=== PATIENT | male | born 1980 | race Caucasian/White ===

== ENCOUNTER → 2020-07-15 12:10 | Outpatient (ROUT) | payer OTHER, SELFPAY ==
[2020-07-15 13:23] LABS: COVID19 -Nasal RAPID Negative (Negative)
== END ==
PROVIDERS: Visit Provider Family Medicine
DX: Z20.822 Contact with and (suspected) exposure to COVID-19 (principal)
CPT/HCPCS: 87635

== ENCOUNTER → 2020-07-20 15:04 | Outpatient (ROUT) | payer OTHER, SELFPAY ==
[2020-07-20 15:38] LABS: COVID19 -Nasal RAPID Negative (Negative)
== END ==
PROVIDERS: Visit Provider Family Medicine
DX: Z20.822 Contact with and (suspected) exposure to COVID-19 (principal); Z03.818 Encounter for observation for suspected exposure to other biological agents ruled out
CPT/HCPCS: 87635

== ENCOUNTER → 2020-10-01 13:53 | Outpatient (ROUT) | payer OTHER, SELFPAY ==
[2020-10-01 14:46] LABS: COVID19 -Nasal RAPID POSITIVE (Negative)
== END ==
PROVIDERS: Visit Provider Family Medicine
DX: U07.1 COVID-19 (principal)
CPT/HCPCS: 87635

== ENCOUNTER 2023-08-06 12:06 | Emergency (ER) | payer OTHER, SELFPAY ==
[2023-08-06 12:14] VITALS: BP 191/119; PULSE 101; RESP 16; TEMP 36.4; O2SAT 97; BMI 34.8
[2023-08-06] MEDS: IBUPROFEN 400 MG TABLET 800 MG PO (12:34)
[2023-08-06] MEDS: OXYCODONE/ACETAMINOPHEN 5/325 TABLET 1 TAB PO (13:11)
--- NOTE | 2023-08-06 13:17 | ED_ITS ---
<Statement entered by Flo Moffett MD - 08/06/23 18:13> I was available for consultation during this patient's time in the ER but not consulted. My review of this chart is my first interaction with this patient's presentation. I confirmed however with the provider after my review of chart that this burn did not cross joints and did not look concerning enough to merit referral to burn center. HPI - Burn/Smoke Inhalation General Chief complaint: Burn/Smoke Inhalation Stated complaint: burn rt hand Time Seen by Provider: 08/06/23 12:29 Source: patient Mode of arrival: Ambulatory History of Present Illness HPI Narrative: 43-year-old male with no reported past medical history presents to the ED status post a burn injury sustained at work just prior to arrival. Patient states that he reached out with his right hand to support himself against a door frame when trying to descend a stair, burned his hand against the hot door frame. The doorframe was hot from some welding that was occurring in the room next door. Patient was wearing a rubber glove on when this happened. Patient was able to remove the glove and the clinic at work put on some burn cream on his hand and sent him to the ED for further evaluation. Patient's tetanus is up-to-date. Patient is able to move all fingers and hand, endorses severe pain at the site of the burn. Related Data Allergies Allergy/AdvReac Type Severity Reaction Status Date / Time No Known Drug Allergies Allergy Verified 08/06/23 12:18 Review of Systems Constitutional Constitutional: Denies chills, Denies fatigue, Denies fever(s), Denies frequent falls, Denies lethargy and Denies weakness Eyes Eyes: Denies change in vision, Denies eye discharge, Denies irritation and Denies loss of vision ENT Ears, Nose, Mouth, and Throat: Denies change in voice, Denies dizziness, Denies neck pain, Denies sore throat and Denies throat swelling Cardiovascular Cardiovascular: Denies chest pain, Denies irregular heart rhythm, Denies lightheadedness, Denies palpitations, Denies dyspnea, Denies dyspnea on exertion and Denies orthopnea Respiratory Respiratory: Denies cough, Denies dyspnea, Denies dyspnea on exertion and Denies wheezing Gastrointestinal Gastrointestinal: Denies abdominal pain, Denies change in bowel habits, Denies diarrhea, Denies nausea and Denies vomiting Musculoskeletal Musculoskeletal: Denies neck pain and Denies numbness Integumentary/Breasts Skin/Breast: Denies pruritus, Denies erythema, Denies rash and Reports wounds Comments: Right hand burn Neurologic Neurologic: Denies behavioral changes, Denies confusion, Denies dizziness, Denies frequent falls, Denies loss of vision, Denies numbness and Denies weakness Psychiatric Psychiatric: Denies anxiety, Denies behavioral changes, Denies confusion, Denies depression, Denies homicidal ideation and Denies suicidal ideation Endocrine Endocrine: Denies fatigue, Denies flushing and Denies palpitations Hematologic/Lymphatic Hematologic/Lymphatic: Denies easy bruising Allergic/Immunologic Allergic/Immunologic: Denies urticaria, Denies throat swelling and Denies wheezing Patient History Social History Smoking Status: Former smoker Smoking Status: Former smoker Substance Use Type: does not use Exam Narrative Exam Narrative: Const General:?cooperative, healthy appearing and comfortable [facility] Head:?normal to inspection Ears:?hearing grossly normal bilaterally Nose:?external nose normal Face and sinus:?normal facial exam and sinuses nontender Mouth:?oral mucosae normal Throat:?posterior oropharynx normal Eyes General:?appearance normal, both eyes and all related structures Neck Neck:?normal visual inspection and no lymphadenopathy noted Resp Effort & Inspection:?normal respiratory effort Auscultation:?clear to auscultation bilaterally Cardio Rate:?regular rate Rhythm:?regular rhythm Integumentary There is a superficial second-degree burn to the hypothenar eminence of the right hand. Blister is intact. Wound looks clean without any debris. Patient is neurovascularly intact. Compartments are soft. Neuro General:?patient alert, patient awake and patient oriented x3 Initial Vital Signs Initial Vital Signs: Vital Signs Temperature 97.5 F L 08/06/23 12:14 Pulse Rate 101 H 08/06/23 12:14 Respiratory Rate 16 08/06/23 12:14 Blood Pressure 191/119 H 08/06/23 12:14 Pulse Oximetry 97 08/06/23 12:14 Oxygen Delivery Method Room Air 08/06/23 12:14 Course Orders Ordered: Discontinued Medications Ibuprofen (Ibuprofen 400 Mg Tablet) 800 mg PO NOW ONE Stop: 08/06/23 12:30 Last Admin: 08/06/23 12:34 Dose: 800 mg Documented By: MANNY Oxycodone/Acetaminophen (Oxycodone/Acetaminophen 5/325 Tablet) 1 tab PO NOW ONE Stop: 08/06/23 12:55 Last Admin: 08/06/23 13:11 Dose: 1 tab Documented By: MANNY Vital Signs Vital signs: Vital Signs - 8 hr 08/06/23 12:14 08/06/23 13:23 Temperature 97.5 F L 98.3 F Pulse Rate 101 H 68 Respiratory Rate 16 20 Blood Pressure 191/119 H 169/98 H Pulse Oximetry 97 96 Oxygen Delivery Method Room Air Room Air MDM - Burn/Smoke Inhalation MDM Narrative Medical decision making narrative: 43-year-old male with no reported past medical history presents to the ED status post a burn injury sustained at work just prior to arrival. Physical exam is consistent with a superficial second-degree burn. There is a burn blister that is developing at the site of the injury alongside the hypothenar eminence of the right hand. The wound appears clean and there is no debris. Patient given ibuprofen and Percocet for pain control. Dressed the wound with Xeroform and Op site bandage. Recommend continued dressing of the wound with Xeroform an op- site to maintain a moist healing environment. Discussed signs of infection and advice return to the ED if any signs of infection noted. Patient verbalized understanding. Medical records reviewed: Yes Discharge Plan Departure Patient Disposition: Home Clinical Impression: Burn Instructions: DI for Ferrer Activity Restrictions/Additional Instructions: You were evaluated in the ED today for a burn on your right hand. You have a superficial second-degree burn with a burn blister. Please keep the blister intact and dress the wound with Xeroform and an occlusive dressing such as op- site. The goal is to keep the wound moist as it heals. Please also watch for signs of infection including worsening redness, pain, swelling, warmth, discharge. You may take ibuprofen for pain. Return to the ED if you note any signs of infection. Referrals: Miscellaneous,Doctor, [Primary Care Provider] - Stand Alone Forms: Patient Portal/API
[2023-08-06 13:23] VITALS: BP 169/98; PULSE 68; RESP 20; TEMP 36.8; O2SAT 96
== END 2023-08-06 13:37 | disposition home or self-care (01) ==
PROVIDERS: Emergency Provider Student in an Organized Health Care Education/Training Program
DX: T23.251A Burn of second degree of right palm, initial encounter (principal); X19.XXXA Contact with other heat and hot substances, initial encounter; Y99.0 Civilian activity done for income or pay
CPT/HCPCS: 99283; 99284

== ENCOUNTER → 2024-06-17 10:56 | Outpatient (CLI) | payer OTHER, SELFPAY ==
--- NOTE | 2024-06-17 11:00 | DI.US.S_ITS ---
PROCEDURE: US EXTREMITY NONVASC LOWER LT INDICATIONS: LEFT POSTERIOR KNEE SWELLING/PAIN ?SOTO'S CYST TECHNIQUE: Real-time scanning was performed of the left knee , with image documentation. COMPARISON: None. FINDINGS/IMPRESSION: No sonographic abnormality about the left knee. No Soto's cyst. Dictated by: Gregory Dunn M.D. on 06/17/2024 at 11:35 Approved by: Gregory Dunn M.D. on 06/17/2024 at 11:36
== END ==
PROVIDERS: Referring Provider Family Medicine; Visit Provider Family Medicine
DX: M25.562 Pain in left knee (principal); M71.22 Synovial cyst of popliteal space [Baker], left knee
CPT/HCPCS: 76882

== ENCOUNTER → 2024-06-18 07:10 | Outpatient (CLI) | payer OTHER, SELFPAY ==
--- NOTE | 2024-06-18 07:13 | DI.MRI.S_ITS ---
PROCEDURE: MR KNEE LT WO CON INDICATIONS: PAIN IN KNEE/POSTERIOR KNEE SWELLING TECHNIQUE: Noncontrast sagittal PD fast spin echo and T2 fast spin echo with fat saturation, sagittal 3-D FLASH with fat saturation; coronal T1 spin echo and PD fast spin echo with fat saturation, and axial PD fast spin echo with fat saturation through the knee. COMPARISON: None. FINDINGS: Image quality: Excellent. Menisci: Medial and lateral meniscal extrusion. There is a complex tear involving the body and posterior horn of the medial meniscus. In addition, there is a horizontal tear involving the anterior horn of the medial meniscus. There is a horizontal tear of the body of the lateral meniscus. The meniscal root ligaments appear intact. Cruciate ligaments: The anterior and posterior cruciate ligaments appear intact. Medial structures: The medial collateral ligament appears intact. The posterior oblique ligament, semimembranosus tendon insertions, oblique popliteal ligament, and meniscocapsular junction appear intact. Visualized portions of the pes anserinus tendons appear normal. No abnormal bursal fluid. There is a 2.7 x 1.5 x 3.3 cm complex cyst in the superior medial aspect of the knee joint. Lateral structures: The lateral collateral ligament, long and short heads of the biceps femoris tendon appear intact. The popliteus tendon appears normal; the popliteofibular ligament appears intact. The posterosuperior and anteroinferior popliteomeniscal fascicles appear intact. The arcuate and fabellofibular ligaments appear intact, on either side of the lateral inferior geniculate artery. Iliotibial band appears normal. Anterior structures: The quadriceps and patellar tendons appear intact. Patellar alignment is normal. No femoral trochlear dysplasia or ventral trochlear prominence. No edema in the infrapatellar fat pad. Nonspecific prepatellar soft tissue swelling. Bones and cartilage: No bone marrow contusions or fractures. Mild cartilage fibrillation with relatively preserved thickness. Joint space: There is small knee joint fluid. There is a small Soto's cyst. Normal appearing synovial plicae are incidentally noted. IMPRESSION: 1. Complex tear of the body and posterior horn of the medial meniscus, and horizontal tear of the anterior horn of the medial meniscus. 2. Horizontal tear of the body of the lateral meniscus. 3. A 2.7 x 1.5 x 3.3 cm complex cyst in the superior medial aspect of the knee joint. Differential diagnoses are meniscal cyst, ganglion cyst or synovial cyst. 4. Small knee joint effusion. 5. A small Soto's cyst. 6. Early cartilage degeneration with cartilage fibrillation with relatively preserved cartilage thickness. Dictated by: Nate Dorado M.D. on 06/18/2024 at 9:57 Approved by: Nate Dorado M.D. on 06/18/2024 at 10:12
== END ==
PROVIDERS: PCP Family Medicine; Referring Provider Family Medicine; Visit Provider Family Medicine
DX: S83.232A Complex tear of medial meniscus, current injury, left knee, initial encounter (principal); S83.282A Other tear of lateral meniscus, current injury, left knee, initial encounter; M25.862 Other specified joint disorders, left knee; M25.462 Effusion, left knee; M71.22 Synovial cyst of popliteal space [Baker], left knee; M25.562 Pain in left knee
CPT/HCPCS: 73721